=== PATIENT | male | born 1990 | race African-American/Black ===

== ENCOUNTER 2017-02-17 12:15 | Emergency (ER) | payer OTHER ==
[~2017-02-17] VITALS: Ht 195.6 cm; Wt 95.3 kg
[~2017-02-17 12:15] MED LIST: MOTRIN800 MG PO
[2017-02-17 12:22] VITALS: BP 125/66
--- NOTE | 2017-02-17 12:25 | NUR ---
PT AMBULATED TO BED 4.
--- NOTE | 2017-02-17 12:28 | NUR ---
26M BIB SELF C/O LEFT ANKLE PAIN, THROBBING, NON-RADIATING, 9/10 X TODAY; PT STATES TRIPPED ON STAIRS YESTERDAY AND CAUGHT SELF ON BAD FOOT; PT DENIES LOC AT THIS TIME; SWELLING NOTED TO SITE AT THIS TIME; PT LEFT PEDAL PULSE PALPABLE, LEFT CAP REFILL < 2 SECONDS, NO LOSS OF SENSATION TO LEFT FOOT AT THIS TIME; PT NOTED W/ SCAR TO LEFT ANKLE; STATES HAD SURGERY TO LEFT ANKLE X 2 YEARS AGO; PT A&OX4, PERRLA, BL LUNG SOUNDS CLEAR, RR EVEN/UNLABORED, SKIN IS WARM/DRY/INTACT AT THIS TIME; PT DENIES N/V/D AT THIS TIME; PT RESTING IN BED W/ HOB ELEVATED AND IN LOWEST POSITION; POSITIONED FOR COMFORT; ER MD MADE AWARE OF STATUS. WILL CONTINUE TO MONITOR.
--- NOTE | 2017-02-17 12:48 | NUR ---
XRAY AT BEDSIDE.
--- NOTE | 2017-02-17 12:54 | NUR ---
Dr. Low evaluating patient at bedside.
[2017-02-17] MEDS ORDERED: KETOROLAC 30 MG/ML VIAL IM ONE (13:10)
[2017-02-17 13:46] VITALS: BP 123/70
--- NOTE | 2017-02-17 13:46 | NUR ---
Patient discharged with v/s stable. Written and verbal after care instructions given and explained. Patient alert, oriented and verbalized understanding of instructions. Ambulatory with CRUTCHES. All questions addressed prior to discharge. ID band removed. Patient advised to follow up with PMD. Rx of NORCO 5MG-325MG TAB & MOTRIN 600MG TAB given. Patient educated on indication of medication including possible reaction and side effects. Opportunity to ask questions provided and answered.
== END 2017-02-17 13:46 | disposition home or self-care (01) ==
LOC: MED 12:15
DX: S82.62XA Displaced fracture of lateral malleolus of left fibula, initial encounter for closed fracture (principal); X58.XXXA Exposure to other specified factors, initial encounter; Y93.01 Activity, walking, marching and hiking; Y92.89 Other specified places as the place of occurrence of the external cause; Y99.8 Other external cause status
CPT/HCPCS: 29515; 73610; 96372; 99284; J1885